=== PATIENT | female | born 1945 | race Hispanic/Latino ===

== ENCOUNTER 2017-11-18 10:11 | Observation (INO) | payer MEDICARE ==
--- NOTE | 2017-11-18 11:18 | ED PDOC ---
Arrival/HPI - General Chief Complaint: Chest Pain Time Seen by Provider: 11/18/17 11:04 Historian: Patient - History of Present Illness Narrative History of Present Illness (Text): 11/18/17 11:13 Patient is a 72 year old female, with past medical history of cardiac stentsx2 ( 2005), presents to the Emergency department for evaluation of a sudden onset of chest pain radiating to her back and right jaw prior to arrival. Patient states she was home when the symptoms suddenly began 10 minutes prior to arrival. EMS was called immediately. Upon EMS arrival, patient was provided aspirin with improvement to the presented symptoms. Patient states the symptoms resolved presenting to the Emergency department for medical evaluation. Patient informs similar symptoms in the past, which improved after drinking warm water and spontaneously resolved. Patient denies any associated shortness of breath, pain with deep inspiration, fever, chills, nausea, vomiting, diarrhea, abdominal pain or any other complaints. PMD: Dr. Crowley Acoustical Carpenter: Dr. Lira Time/Duration: Prior to Arrival Symptom Onset: Gradual Symptom Course: Resolved Quality: Aching Activities at Onset: Light Context: Home Past Medical History - Provider Review Nursing Documentation Reviewed: Yes - Infectious Disease Hx of Infectious Diseases: None - Reproductive Menopause: Yes - Cardiac Hx Hypertension: Yes Hx Pacemaker: No - Neurological Hx Paralysis: No - Hematological/Oncological Hx Blood Transfusions: No (IRON INFUSIONS IN PAST) Hx Blood Transfusion Reaction: No - Musculoskeletal/Rheumatological Hx Musculoskeletal Disorders: Yes - Psychiatric Hx Emotional Abuse: No Hx Physical Abuse: No Hx Substance Use: No - Anesthesia Hx Anesthesia Reactions: No Hx Malignant Hyperthermia: No - Suicidal Assessment Feels Threatened In Home Enviroment: No Family/Social History - Physician Review Nursing Documentation Reviewed: Yes Family/Social History: Unknown Family HX Smoking Status: Never Smoked Hx Alcohol Use: No Hx Substance Use: No Allergies/Home Meds Allergies/Adverse Reactions: Allergies No Known Allergies Allergy (Verified 11/18/17 20:02) Home Medications: Home Meds Medication Instructions Recorded Confirmed Aspirin [Ecotrin] 81 mg PO DAILY 02/21/16 11/18/17 Ergocalciferol (Vitamin D2) 50,000 iu PO SUN 02/21/16 11/18/17 [Vitamin D2] Metoprolol Tartrate [Lopressor] 50 mg PO BID 02/21/16 11/18/17 Omeprazole 40 mg PO HS 02/21/16 11/18/17 Sitagliptin Phos/Metformin HCl 1 tab PO DAILY 02/21/16 11/18/17 [Janumet 50-500 mg Tablet] Allopurinol [Zyloprim] 100 mg PO MWF 11/11/16 11/18/17 Atorvastatin [Lipitor] 80 mg PO QOTHERDAY 11/11/16 11/18/17 Colesevelam HCl [Welchol] 1,875 mg PO BID 11/11/16 11/18/17 Pregabalin [Lyrica] 50 mg PO BID 11/11/16 11/18/17 Valsartan 80 mg PO HS 11/11/16 11/18/17 clonazePAM [Klonopin] 0.5 mg PO Q12 PRN 11/11/16 11/18/17 Review of Systems - Physician Review All systems were reviewed & negative as marked: Yes - Review of Systems Constitutional: absent: Fevers Eyes: absent: Vision Changes ENT: absent: Hearing Changes Respiratory: absent: SOB, Cough Cardiovascular: Chest Pain (resolved) Gastrointestinal: absent: Abdominal Pain, Diarrhea, Nausea, Vomiting Genitourinary Female: absent: Dysuria Musculoskeletal: Back Pain (resolved), Neck Pain, Other (Right jaw pain currently resolved) Skin: absent: Rash Neurological: absent: Headache, Dizziness Endocrine: absent: Polyuria Psychiatric: absent: Anxiety, Depression Physical Exam - Physical Exam Narrative Physical Exam (Text): 11/18/17 11:15 Head: Atraumatic. Normocephalic. Eyes: PERRL. EOMI. Conjunctivae are not pale. ENT: Mucous membranes are moist and intact. Oropharynx is clear and symmetric. Neck: Supple. Full ROM. No JVD. No lymphadenopathy. No meningeal signs. Cardiovascular: Regular rate. Regular rhythm. Systsolic murmur noted. Pulmonary/Chest: No evidence of respiratory distress. Clear to auscultation bilaterally. No wheezing, rales or rhonchi. Abdominal: Soft and non-distended. There is no tenderness. No rebound, guarding, or rigidity. No organomegaly. Good bowel sounds. Back: No CVA tenderness. No palpable tenderness. No rash. Extremities: Cast noted on left leg, placed Wednesday as per patient. No edema. No cyanosis. No clubbing. No calf tenderness. Skin: Skin is warm and dry. No petechiae. No purpura. Neurological: Alert, awake, and oriented. Motor and sensory exam intact. No facial droop. Psychiatric: Good eye contact. Normal interaction, affect, and behavior. Vital Signs Reviewed: Yes Vital Signs Temp Pulse Resp BP Pulse Ox 11/18/17 14:07 98.8 F 73 18 100/55 L 96 11/18/17 10:30 98.4 F 77 16 138/71 97 Temperature: Afebrile Blood Pressure: Normal Pulse: Regular Respiratory Rate: Normal Appearance: Positive for: Well-Appearing, Non-Toxic, Comfortable Pain Distress: None Mental Status: Positive for: Alert and Oriented X 3 Medical Decision Making ED Course and Treatment: 11/18/17 11:15 Impression: 72 year old female presents to the Emergency department for sudden onset of chest pain. Differential Diagnosis included but are not limited to: [place] vs. unstable angina vs. Pulmonary Embolism Plan: -- EKG -- Labs -- Chest X-ray -- Reassess and disposition Prior Visits: Notes and results from previous visits were reviewed. Progress Notes: 11/18/17 11:15 Patient states she is currently pain free after receiving Aspirin by EMS prior to arrival. Patient presents to the Emergency department for medical evaluation. Plan is to obtain cardiac evaluation with D-dimer and consult wire harness design engineer Dr. Lira. 11/18/17 11:46 Chest X-ray reviewed by radiologist, shows no active disease. 11/18/17 13:08 Patient remains pain free. Despite d-dimer being mildly elevated, patient denies any chest pain or shortness of breath still. Will order CT angio of the chest for further evaluation. Acoustical Carpenter, Dr. Lira, has been updated and Lovenox has been ordered for unstable angina. Patient will be admitted to Dr. Crowley's service for further observation. 11/18/17 14:15 CT angio of chest reviewed by radiologist, shows: No CT evidence for acute pulmonary embolism, aortic aneurysm or aortic dissection. Mild cardiomegaly. No focal consolidation, pleural effusion or pneumothorax. 5 mm peripheral nodule in the inferior lingula. In a high-risk patient follow- up CT scan 1 year interval may be performed if clinically indicated to assess the stability of this nodule. Patient remains pain free. Updated on CT results, including discussion of nodule noted and need for follow-up. - Lab Interpretations Lab Results: 11/18/17 11:50 11/18/17 11:50 Lab Results 11/18/17 11:50: Sodium 141, Potassium 4.0, Chloride 101, Carbon Dioxide 28, Anion Gap 17, BUN 27 H, Creatinine 0.8, Est GFR ( Amer) > 60, Est GFR ( Non-Af Amer) > 60, Random Glucose 147 H, Calcium 9.0, Total Bilirubin 0.3, AST 29, ALT 32, Alkaline Phosphatase 116, Lactate Dehydrogenase 409, Total Creatine Kinase 489 H, CK-MB (CK-2) 0.6, CK-MB (CK-2) % Cancelled, Troponin I < 0.01, Total Protein 7.0, Albumin 4.1, Globulin 2.9, Albumin/Globulin Ratio 1.4 11/18/17 11:50: PT 11.4, INR 0.99, APTT 27.1, D-Dimer, Quantitative 281 H 11/18/17 11:50: WBC 13.3 H, RBC 4.15, Hgb 11.6 L, Hct 34.7 L, MCV 83.6, MCH 28.0 , MCHC 33.4, RDW 14.8 H, Plt Count 323, MPV 9.4, Gran % 74.2 H, Lymph % (Auto) 19.4 L, [place] % (Auto) 5.3, Eos % (Auto) 0.9 L, Baso % (Auto) 0.2, Gran # 9.84 H , Lymph # (Auto) 2.6, [place] # (Auto) 0.7 H, Eos # (Auto) 0.1, Baso # (Auto) 0.02 - RAD Interpretation Radiology Orders: 11/18/17 11:13 CHEST PORTABLE [RAD] Stat 11/18/17 12:34 ANGIO CHEST PE PROTOCOL [CT] Stat Disability Rater: Radiologist - Medication Orders Current Medication Orders: Aspirin (Ecotrin) 81 mg PO DAILY [facility] Atorvastatin Calcium (Lipitor) 40 mg PO DIN [facility] Last Admin: 11/18/17 17:58 Dose: 40 mg Clopidogrel Bisulfate (Plavix) 75 mg PO DAILY [facility] Last Admin: 11/18/17 22:13 Dose: 75 mg Dextrose (Dextrose 50% Inj) 0 ml IV STAT PRN; Protocol PRN Reason: Hypoglycemia Protocol Enoxaparin Sodium (Lovenox) 40 mg SC DAILY [facility] PRN Reason: Protocol Ergocalciferol (Drisdol 50,000 Intl Units Cap) 1 cap PO SUN [facility] Dextrose (Dextrose 5% In Water 1000 Ml) 1,000 mls @ 0 mls/hr IV .Q0M PRN; Protocol; Per Protocol PRN Reason: Hypoglycemia Protocol Insulin Human Regular (Humulin R Med) 0 units SC ACHS ROJELIO PRN Reason: Protocol Last Admin: 11/18/17 23:04 Dose: Not Given Non-Admin Reason: Blood Sugar Parameter MAR Blood Glucose Document 11/18/17 23:04 LGA (Rec: 11/18/17 23:[address] [id number]) Blood Glucose Finger Stick Blood Glucose (70-120) 106 Losartan Potassium (Cozaar) 25 mg PO HS [facility] Last Admin: 11/18/17 22:14 Dose: 25 mg MAR Pulse and Blood Pressure Document 11/18/17 22:14 LGA (Rec: 11/18/17 22:14 LGA [id number]) Pulse Pulse Rate (60-90 beats/min) 69 Blood Pressure Blood Pressure (100/60-150/90 mm Hg) 139/78 Metoprolol Tartrate (Lopressor) 50 mg PO BID [facility] Last Admin: 11/18/17 17:57 Dose: 50 mg MAR Pulse and Blood Pressure Document 11/18/17 17:57 KMS (Rec: 11/18/17 17:58 KMS [id number]) Pulse Pulse Rate (60-90 beats/min) 74 Blood Pressure Blood Pressure (100/60-150/90 mm Hg) 144/68 Pantoprazole Sodium (Protonix Ec Tab) 40 mg PO HS [facility] Last Admin: 11/18/17 22:13 Dose: 40 mg Pregabalin (Lyrica) 50 mg PO BID [facility] Last Admin: 11/18/17 17:58 Dose: 50 mg Zolpidem Tartrate (Ambien) 5 mg PO HS PRN; Protocol PRN Reason: Insomnia Discontinued Medications Enoxaparin Sodium (Lovenox) 70 mg SC STAT STA PRN Reason: Protocol Stop: 11/18/17 12:49 Last Admin: 11/18/17 13:12 Dose: 70 mg Subcutaneous Administrations Document 11/18/17 13:12 HI (Rec: 11/18/17 13:[address] [id number]) Injection Site MAR Injection Site Left Abdomen Charges for Administration # of Subcutaneous Administrations 1 Nitroglycerin (Nitrostat Sl Tab) 0.3 mg SL Q5M PRN PRN Reason: Pain, severe (8-10) Stop: 11/18/17 14:26 Non-Formulary Medication (Omeprazole [Omeprazole]) 40 mg PO HS ROJELIO Pneumococcal Polyvalent Vaccine (Pneumovax 23 Vaccine) 0.5 ml IM .ONCE ONE Stop: 11/18/17 22:35 - Scribe Statement The provider has reviewed the documentation as recorded by the Scribe Linda Johns. All medical record entries made by the Scribe were at my direction and personally dictated by me. I have reviewed the chart and agree that the record accurately reflects my personal performance of the history, physical exam, medical decision making, and the department course for this patient. I have also personally directed, reviewed, and agree with the discharge instructions and disposition. Disposition/Present on Arrival - Present on Arrival Any Indicators Present on Arrival: No History of DVT/PE: No History of Uncontrolled Diabetes: No Urinary Catheter: No History of Decub. Ulcer: No History Surgical Site Infection Following: None - Disposition Have Diagnosis and Disposition been Completed?: Yes Diagnosis: Chest pain, Unstable angina Disposition: HOSPITALIZED Disposition Time: 13:00 Patient Plan: Admission, Telemetry Patient Problems: Current Active Problems Problem Status Onset Chest pain Acute Unstable angina Acute Condition: SERIOUS
--- NOTE | 2017-11-18 11:39 | RAD ---
Date of service: 11/18/2017 HISTORY: chest pain COMPARISON: 07/05/2012 FINDINGS: LUNGS: No active pulmonary disease. PLEURA: No significant pleural effusion identified, no pneumothorax apparent. CARDIOVASCULAR: Normal. OSSEOUS STRUCTURES: No significant abnormalities. VISUALIZED UPPER ABDOMEN: Normal. OTHER FINDINGS: None. IMPRESSION: No active disease.
[2017-11-18 11:59] LABS: BASO # 0.02 K/mm3 (0.0-2.0); BASO % 0.2 % (0.0-3.0); EOS # 0.1 (0.0-0.7); EOS % 0.9 % (1.5-5.0); GRAN # 9.84 (1.4-6.5); GRAN % 74.2 % (50.0-68.0); HEMOGLOBIN 11.6 g/dL (12.0-16.0); LYMPH # 2.6 (1.2-3.4); LYMPH % 19.4 % (22.0-35.0); MEAN CELL VOLUME 83.6 fl (80.0-105.0); MEAN CORPUSCULAR HGB CONC 33.4 g/dl (31.0-37.0); MEAN PLATELET VOLUME 9.4 fl (7.0-11.0); MONO # 0.7 (0.1-0.6); MONO % 5.3 % (1.0-6.0); RBC 4.15 10^6/uL (3.5-6.1); RED CELL DISTRIBUTION WIDTH 14.8 % (11.5-14.5); WHITE BLOOD COUNT 13.3 10^3/ul (4.5-11.0)
[2017-11-18 12:10] LABS: ALB/GLOB RATIO 1.4 (1.1-1.8); ALBUMIN 4.1 g/dL (3.0-4.8); ALT/SGPT 32 U/L (7-56); AST/SGOT 29 U/L (14-36); BLOOD UREA NITROGEN 27 mg/dL (7-21); GFR AFRICAN-AMERICAN > 60; GFR NON-AFRICAN AMERICAN > 60
[2017-11-18 12:27] LABS: TROPONIN I < 0.01 ng/mL
[2017-11-18 12:32] LABS: INR 0.99 (0.93-1.08); PARTIAL THROMBOPLASTIN TIME 27.1 Seconds (25.1-36.5); PROTHROMBIN TIME 11.4 SECONDS (9.4-12.5)
[2017-11-18] MEDS ORDERED: Enoxaparin 80 mg Syringe SC STA (12:48)
[2017-11-18] MEDS ORDERED: Iohexol 350 MG/100 ML VIAL ONE (12:49)
[2017-11-18 13:12] LABS: CK-MB 0.6 ng/mL (0.0-3.6)
[2017-11-18] MEDS ORDERED: Dextrose 50% SYRINGE Inj (50 ml) IV PRN (13:54)
--- NOTE | 2017-11-18 14:23 | CP.PCM.HP ---
<Lacie Vu - Last Filed: 11/18/17 15:12> History of Present Illness - History of Present Illness History of Present Illness: Lacie Vu, PGY2, H&P for Dr Crowley: CC: chest pain 72 year old female with PMH cardiac stents x2 (2005), DM, HTN, HLD, left achilles tear in cast (since past Wednesday), presents for epigastric pain. Patient states that it started at 9 AM this morning while patient was exerting herself in wheelchair. Pt rates it as 6-7/10, radiates to left jaw, upper back region. Denies associated nausea, vomiting, palpitations, syncope, headache, abdominal pain. Patient states that she often feels such pain once a month. Within 15 minutes of such pain, patient called 911 and took 325 mg ASA. After 1/ 2hr-45 minutes, patient states that she felt relief of her pain. States that her last cardiac cath was in 2005. Prior to this episode, patient states that she was in her usual state of health. Denies headache, cough, fever, chills, diarrhea, constipation, heartburn symptoms, urinary symptoms, leg swelling. Denies recent travel or sick contacts. In ED, patient afebrile, hemodynamically stable. Initial EKG and trop neg. Given lovenox 70 mg sq in ED. Currently, patient denies chest pain, sob, n/v, diaphoresis. 12 point ROS obtained and neg, except as per HPI. PMH: cardiac stents x 2 (2005-[facility] with Dr Lira), DM, HTN, HLD, left achilles tear PSH: cholecystectomy (50 years ago) All: NKA FH: Aunt, brain cancer Father, DM Mother, HTNM SH: Lives by self. Has aunt who lives upstairs; daughter and granddaughter live 1 hour away. Quit smoking 12 years ago, prior smoked 3 ppd x 30 years. Drinks 1- 2 glasses of red wine for past 5 years. denies recreational drug use. PMD: [employer] Hair Clipper: Dr Lira INS: [employer] Pharmacy: [facility] Present on Admission - Present on Admission Any Indicators Present on Admission: No History of DVT/PE: No History of Uncontrolled Diabetes: No Urinary Catheter: No Decubitus Ulcer Present: No Review of Systems - Review of Systems All systems: reviewed and no additional remarkable complaints except Review of Systems: as per HPI Past Patient History - Infectious Disease Hx of Infectious Diseases: None - Past Social History Smoking Status: Never Smoked - CARDIAC Hx Hypertension: Yes Hx Pacemaker: No - NEUROLOGICAL Hx Paralysis: No - HEMATOLOGICAL/ONCOLOGICAL Hx Blood Transfusions: No (IRON INFUSIONS IN PAST) Hx Blood Transfusion Reaction: No - MUSCULOSKELETAL/RHEUMATOLOGICAL Hx Musculoskeletal Disorders: Yes - PSYCHIATRIC Hx Emotional Abuse: No Hx Physical Abuse: No Hx Substance Use: No - SURGICAL HISTORY Hx Surgeries: No - ANESTHESIA Hx Anesthesia Reactions: No Hx Malignant Hyperthermia: No Meds Allergies/Adverse Reactions: Allergies Allergy/AdvReac Type Severity Reaction Status Date / Time No Known Allergies Allergy Verified 11/18/17 20:02 Physical Exam - Constitutional Appears: Non-toxic, No Acute Distress - Head Exam Head Exam: ATRAUMATIC, NORMOCEPHALIC - Eye Exam Eye Exam: EOMI, PERRL. absent: Conjunctival injection, Nystagmus, Scleral icterus Pupil Exam: NORMAL ACCOMODATION, PERRL. absent: Fixed, Irregular, Miosis, Unequal - ENT Exam ENT Exam: Mucous Membranes Moist - Neck Exam Neck exam: Positive for: Full Rom - Respiratory Exam Respiratory Exam: Clear to Auscultation Bilateral, NORMAL BREATHING PATTERN. absent: Accessory Muscle Use, Rales, Rhonchi, Wheezes, Stridor - Cardiovascular Exam Cardiovascular Exam: RRR, +S1, +S2. absent: Systolic Murmur - GI/Abdominal Exam GI & Abdominal Exam: Normal Bowel Sounds, Soft. absent: Distended, Firm, Guarding, Organomegaly, Pulsatile Mass, Rebound, Rigid, Tenderness - Extremities Exam Extremities exam: Positive for: normal inspection. Negative for: calf tenderness, pedal edema - Back Exam Back exam: NORMAL INSPECTION. absent: CVA tenderness (L), CVA tenderness (R), muscle spasm, paraspinal tenderness, rash noted, tenderness, vertebral tenderness - Neurological Exam Neurological exam: Alert, Oriented x3 - Psychiatric Exam Psychiatric exam: Normal Affect, Normal Mood - Skin Skin Exam: Dry, Normal Color, Warm Results - Vital Signs Recent Vital Signs: Last Vital Signs Temp 98.4 F 11/18/17 10:30 Pulse 77 11/18/17 10:30 Resp 16 11/18/17 10:30 BP 138/71 11/18/17 10:30 Pulse Ox 97 11/18/17 10:30 - Labs Result Diagrams: 11/18/17 11:50 11/18/17 11:50 Assessment & Plan - Assessment and Plan (Free Text) Assessment: 72 year old female with PMH cardiac stents x2 (2005), DM, HTN, HLD, left achilles tear in cast (since past Wednesday), presents for chest/epigastric pain: Chest/epigastric pain: r/o ACS, vs PE vs GERD vs PUD - Initial EKG shows HR [address]/T wave abnormalities. QTc prolonged 485 ms - Initial trop neg. F/u serial trops and EKG - ASA 325 given at home - ASA 81 mg, Metoprolol - nitro SL prn for chest pain - F/u echo - F/u tsh, HgbA1C, lipid panel, lipase - Cardiology on board. F/u recs - Give Lovenox 70 mg sq in ED - F/u CTA Left achilles tear in cast: - podiatry consult. F/u recs. - pulses/sensation intact Hx of HTN: - home metoprolol - holding parameters in place - monitor Hx of DM: - hold home Janumet - lyrica - ISS med Hx of HLD: - lipid panel - home lipitor PPX: omeprazole, lovenox Case discussed with Dr Crowley. Lacie Vu, pGY2 <Marty Crowley U - Last Filed: 11/20/17 20:49> Results - Vital Signs Recent Vital Signs: Last Vital Signs Temp 98.1 F 11/19/17 06:00 Pulse 71 11/19/17 10:00 Resp 18 11/19/17 06:00 BP 122/60 11/19/17 06:00 Pulse Ox 96 11/19/17 06:00 - Labs Result Diagrams: 11/19/17 05:40 11/19/17 05:40 Labs: Laboratory Results - last 24 hr 11/19/17 05:40 Fructosamine 208 Attending/Attestation - Attestation I have personally seen and examined this patient.: Yes I have fully participated in the care of the patient.: Yes I have reviewed all pertinent clinical information: Yes Notes (Text): Please see/read my dictated notes.
--- NOTE | 2017-11-18 14:24 | CT ---
Date of service: 11/18/2017 PROCEDURE: CT Chest with contrast (Pulmonary Angiogram) HISTORY: r/o PE COMPARISON: None available. TECHNIQUE: Axial computed tomography images were obtained of the chest in the pulmonary arterial phase of enhancement. Coronal and sagittal reformatted images were created and reviewed. Intravenous contrast dose: 100 mL Omnipaque 350 Radiation dose: Total exam DLP = 432.47 mGy-cm. This CT exam was performed using one or more of the following dose reduction techniques: Automated exposure control, adjustment of the mA and/or kV according to patient size, and/or use of iterative reconstruction technique. FINDINGS: PULMONARY ARTERIES: There are no filling defects in the pulmonary arteries to suggest acute pulmonary embolism. AORTA: No aortic dissection. No thoracic aortic aneurysm. LUNGS: The lungs are well inflated and clear. There is a 5 mm nodule in the peripheral inferior lingula (series 5, image 64). There is scattered centrilobular emphysema in the right upper lobe. No mass or pulmonary consolidation. PLEURAL SPACES: No effusion or pneumothorax. HEART: There is mild cardiomegaly. No pericardial effusion. LYMPH NODES: No pathologic mediastinal or hilar lymphadenopathy. BONES, CHEST WALL: Unremarkable. No fracture or destructive lesion there is diffuse bone demineralization and multilevel degenerative disc disease OTHER FINDINGS: There is a small sliding hiatal hernia. There is diffuse fatty infiltration in the liver. IMPRESSION: No CT evidence for acute pulmonary embolism, aortic aneurysm or aortic dissection. Mild cardiomegaly. No focal consolidation, pleural effusion or pneumothorax. 5 mm peripheral nodule in the inferior lingula. In a high-risk patient follow-up CT scan 1 year interval may be performed if clinically indicated to assess the stability of this nodule.
[2017-11-18] MEDS: Insulin Reg-MEDIUM-Coverage SC SCH ×2 (16:30→23:04)
[2017-11-18] MEDS ORDERED: COLESEVELAM HCL 1875 MG PO SCH ×2 (18:00)
--- NOTE | 2017-11-18 19:29 | CARD ---
APPROVED REPORT Date of service: 11/18/2017 EKG Measurement Heart [id number] <Conclusion> Sinus rhythm with 1st degree AV block Nonspecific T wave abnormality Abnormal ECG
--- NOTE | 2017-11-18 19:37 | CARD ---
APPROVED REPORT Date of service: 11/18/2017 EKG Measurement Heart [id number] <Conclusion> Normal sinus rhythm Prolonged QT Abnormal ECG
[2017-11-18 19:53] LABS: LIPASE 110 U/L (23-300); TROPONIN I < 0.01 ng/mL
[2017-11-18 19:54] LABS: CK-MB 0.7 ng/mL (0.0-3.6)
[2017-11-18 20:07] LABS: FREE T4 1.21 ng/dL (0.78-2.19)
[2017-11-18] MEDS ORDERED: Non Formulary Medication (Omeprazole [Omeprazole] 40 MG) PO SCH (22:00)
[2017-11-18] MEDS ORDERED: Pantoprazole 40 mg EC Tab PO SCH (22:00)
[2017-11-18 22:34] VITALS: BMI 29.2
[2017-11-18] MEDS ORDERED: Pneumococcal 23-Valent Vaccine IM ONE (22:34)
[2017-11-19 01:21] LABS: TROPONIN I < 0.01 ng/mL
[2017-11-19 01:39] LABS: CK-MB 0.6 ng/mL (0.0-3.6)
[2017-11-19 06:28] LABS: BASO # 0.02 K/mm3 (0.0-2.0); BASO % 0.2 % (0.0-3.0); EOS # 0.1 (0.0-0.7); EOS % 1.3 % (1.5-5.0); GRAN # 5.6 (1.4-6.5); GRAN % 64.7 % (50.0-68.0); HEMOGLOBIN 11.3 g/dL (12.0-16.0); LYMPH # 2.4 (1.2-3.4); LYMPH % 27.2 % (22.0-35.0); MEAN CELL VOLUME 83.7 fl (80.0-105.0); MEAN CORPUSCULAR HEMOGLOBIN 27.2 pg (25.0-35.0); MEAN CORPUSCULAR HGB CONC 32.5 g/dl (31.0-37.0); MEAN PLATELET VOLUME 10.7 fl (7.0-11.0); MONO # 0.6 (0.1-0.6); MONO % 6.6 % (1.0-6.0); RBC 4.16 10^6/uL (3.5-6.1); RED CELL DISTRIBUTION WIDTH 14.6 % (11.5-14.5); WHITE BLOOD COUNT 8.7 10^3/ul (4.5-11.0)
[2017-11-19 06:36] VITALS: BP 122/60; PULSE 71; RESP 18; TEMP 98.1; O2SAT 96
[2017-11-19 06:47] LABS: ALB/GLOB RATIO 1.4 (1.1-1.8); ALT/SGPT 37 U/L (7-56); AST/SGOT 28 U/L (14-36); BLOOD UREA NITROGEN 17 mg/dL (7-21); CALCIUM 8.9 mg/dL (8.4-10.5); GFR AFRICAN-AMERICAN > 60; GFR NON-AFRICAN AMERICAN > 60; HDL CHOLESTEROL 29 mg/dL (29-60)
[2017-11-19 06:48] LABS: LDL CHOLESTEROL 83 mg/dL (0-129)
--- NOTE | 2017-11-19 07:43 | HP ---
Please refer to the detailed history and physical examination done by the medical technician earlier today. The patient examined in room 271, bed 2. The patient's vital signs, diagnostic data reviewed. Imaging studies reviewed. The patient examined. IMPRESSION AND PLAN: 1. Precordial retrosternal chest pain with associated diaphoresis. 2. Possible unstable angina with radiation of chest pain to the jaw and upper back. 3. Status post left Achilles tendon tear, status post casting done. 4. Hypertension. 5. Leukocytosis with granulocytosis. 6. Type 2 diabetes mellitus. 7. Diabetic neuropathy. 8. Elevated D-dimer. 9. Hyperglycemia. 10. Left inferior lingular area 5-mm pulmonary nodule. 11. Right upper lobe centrilobular emphysema. 12. Hiatal hernia. 13. Hepatic steatosis and fatty infiltration of the liver. 14. Mild cardiomegaly. 15. History of iron-deficiency anemia, history of diverticulosis and history of questionable diverticulitis. 16. History of coronary artery disease, ST elevation myocardial infarction, coronary angioplasty and stent placement, history of hypertension, history of cholecystectomy. 17. Possible unstable angina with symptoms of diaphoresis and chest pain radiating to the jaw. 18. Nonspecific ST changes. 19. History of anxiety disorder. 20. History of type 2 diabetes mellitus. 21. Hypovitaminosis D. 22. Hypercholesterolemia and hypertriglyceridemia. 23. Hyperuricemia. 24. Diabetic neuropathy. 25. History of Alexander's esophagus. 26. Left Achilles tendon rupture. 27. Osteopenia. 28. Hyperplastic colonic polyp, sigmoid colon polyp, tubular adenoma. 29. Obesity with elevated body mass index. 30. Sigmoid and descending colon diverticulosis and internal hemorrhoids. 31. History of insomnia. 32. History of nicotine dependence. PLAN: At this time, the patient is to be admitted to [facility] Telemetry. Serial cardiac enzymes, serial labs, lipid panel, hemoglobin A1c, repeat CBC ordered. Cardiology, Podiatry consultation ordered. CURRENT MEDICATIONS: Ambien 5 mg at bedtime p.r.n., Cozaar 25 mg daily. Hypoglycemia protocol ordered. Drisdol 50,000 units weekly, aspirin 81 mg daily, Lipitor 40 mg daily, Lopressor 50 mg twice a day, Lovenox 40 mg subcu daily, Lyrica 50 mg twice a day, Protonix 40 mg daily. In addition, the patient will also be started on Plavix 75 mg p.o. daily. Plavix 75 mg p.o. daily will be ordered. The patient is on oxygen. Repeat EKG ordered. Echo with Doppler ordered. Heart-healthy diet ordered. The patient has been started on medium-dose Humulin sliding scale coverage before lunch and at bedtime, Lipitor 40 mg daily ordered. Lipid panel, magnesium, phosphorus ordered. Repeat CBC ordered. Serial cardiac enzymes ordered. At present, the patient was seen and examined in room 271, bed 2. The patient was explained about the details of her medical condition, need for further diagnostic therapeutic intervention, need for further Cardiology, Podiatry evaluation. Discussed and explained to the patient at length and all questions concerned answered which she acknowledged and understood. The patient was advised that further management will be dependent upon the patient's clinical condition, hemodynamic status and as per the patient's response to therapeutic intervention and as per further cardiac recommendations. Dictated and electronically signed, not read. Marty Crowley MD
[2017-11-19] MEDS: Insulin Reg-MEDIUM-Coverage SC SCH ×2 (07:57→12:07)
[2017-11-19] MEDS ORDERED: Enoxaparin 40 mg Syringe SC SCH (10:00)
--- NOTE | 2017-11-19 10:00 | CARD ---
APPROVED REPORT Date of service: 11/19/2017 EKG Measurement Heart [id number] <Conclusion> Sinus rhythm with 1st degree AV block T wave abnormality, consider anterior ischemia Abnormal ECG
--- NOTE | 2017-11-19 10:12 | CP.PCM.DIS ---
<Lacie Vu - Last Filed: 11/19/17 10:09> Provider - Provider Date of Admission: 11/18/17 13:00 Attending physician: Marty Crowley MD Primary care physician: Marty Crowley MD Consults: Cardio Lira Time Spent in preparation of Discharge (in minutes): 60 Diagnosis - Discharge Diagnosis (1) Chest pain Status: Acute (2) Unstable angina Status: Acute Hospital Course - Lab Results Lab Results: Most Recent Lab Values WBC 8.7 10^3/ul (4.5-11.0) D 11/19/17 05:40 RBC 4.16 10^6/uL (3.5-6.1) 11/19/17 05:40 Hgb 11.3 g/dL (12.0-16.0) L 11/19/17 05:40 Hct 34.8 % (36.0-48.0) L 11/19/17 05:40 MCV 83.7 fl (80.0-105.0) 11/19/17 05:40 MCH 27.2 pg (25.0-35.0) 11/19/17 05:40 MCHC 32.5 g/dl (31.0-37.0) 11/19/17 05:40 RDW 14.6 % (11.5-14.5) H 11/19/17 05:40 Plt Count 252 10^3/uL (120.0-450.0) 11/19/17 05:40 MPV 10.7 fl (7.0-11.0) 11/19/17 05:40 Gran % 64.7 % (50.0-68.0) 11/19/17 05:40 Lymph % (Auto) 27.2 % (22.0-35.0) 11/19/17 05:40 [place] % (Auto) 6.6 % (1.0-6.0) H 11/19/17 05:40 Eos % (Auto) 1.3 % (1.5-5.0) L 11/19/17 05:40 Baso % (Auto) 0.2 % (0.0-3.0) 11/19/17 05:40 Gran # 5.60 (1.4-6.5) 11/19/17 05:40 Lymph # (Auto) 2.4 (1.2-3.4) 11/19/17 05:40 [place] # (Auto) 0.6 (0.1-0.6) 11/19/17 05:40 Eos # (Auto) 0.1 (0.0-0.7) 11/19/17 05:40 Baso # (Auto) 0.02 K/mm3 (0.0-2.0) 11/19/17 05:40 PT 11.4 SECONDS (9.4-12.5) 11/18/17 11:50 INR 0.99 (0.93-1.08) 11/18/17 11:50 APTT 27.1 Seconds (25.1-36.5) 11/18/17 11:50 D-Dimer, Quantitative 281 ng/mL (0-243) H 11/18/17 11:50 Sodium 139 mmol/L (132-148) 11/19/17 05:40 Potassium 4.1 mmol/L (3.6-5.0) 11/19/17 05:40 Chloride 105 mmol/L (98-107) 11/19/17 05:40 Carbon Dioxide 25 mmol/L (21-33) 11/19/17 05:40 Anion Gap 13 (10-20) 11/19/17 05:40 BUN 17 mg/dL (7-21) 11/19/17 05:40 Creatinine 0.7 mg/dl (0.7-1.2) 11/19/17 05:40 Est GFR ( Amer) > 60 11/19/17 05:40 Est GFR (Non-Af Amer) > 60 11/19/17 05:40 POC Glucose (mg/dL) 106 mg/dL (65-110) 11/18/17 21:08 Random Glucose 120 mg/dL (70-110) H 11/19/17 05:40 Calcium 8.9 mg/dL (8.4-10.5) 11/19/17 05:40 Phosphorus 3.6 mg/dL (2.5-4.5) 11/19/17 05:40 Magnesium 2.1 mg/dL (1.7-2.2) 11/19/17 05:40 Total Bilirubin 0.6 mg/dL (0.2-1.3) 11/19/17 05:40 AST 28 U/L (14-36) 11/19/17 05:40 ALT 37 U/L (7-56) 11/19/17 05:40 Alkaline Phosphatase 110 U/L (38-126) 11/19/17 05:40 Lactate Dehydrogenase 445 U/L (333-699) 11/19/17 00:40 Total Creatine Kinase 318 U/L (35-230) H 11/19/17 00:40 CK-MB (CK-2) 0.6 ng/mL (0.0-3.6) 11/19/17 00:40 CK-MB (CK-2) % Cancelled 11/18/17 11:50 Troponin I < 0.01 ng/mL 11/19/17 00:40 Total Protein 6.9 g/dL (5.8-8.3) 11/19/17 05:40 Albumin 4.0 g/dL (3.0-4.8) 11/19/17 05:40 Globulin 2.9 gm/dL 11/19/17 05:40 Albumin/Globulin Ratio 1.4 (1.1-1.8) 11/19/17 05:40 Triglycerides 406 mg/dL (35-160) H 11/19/17 05:40 Cholesterol 177 mg/dL (130-200) 11/19/17 05:40 LDL Cholesterol Direct 83 mg/dL (0-129) 11/19/17 05:40 HDL Cholesterol 29 mg/dL (29-60) 11/19/17 05:40 Lipase 110 U/L (23-300) 11/18/17 19:11 Free T4 1.21 ng/dL (0.78-2.19) 11/18/17 19:11 TSH 3rd Generation 1.50 mIU/mL (0.46-4.68) 11/18/17 19:11 - Hospital Course Hospital Course: 72 year old female with PMH cardiac stents x2 (2005), DM, HTN, HLD, left achilles tear in cast (since past Wednesday), presents for epigastric pain. Patient states that it started at 9 AM this morning while patient was exerting herself in wheelchair. Pt rates it as 6-7/10, radiates to left jaw, upper back region. Denies associated nausea, vomiting, palpitations, syncope, headache, abdominal pain. Patient states that she often feels such pain once a month. Patient afebrile, hemodynamically stable. EKG and trops neg x3. Given lovenox 70 mg sq in ED. Cardiology evaluated patient, scheduled for cardiac cath on . Medications reconciled. Patient to follow up with Dr Crowley and Dr Lira in 1 week. Discharge Exam - Head Exam Head Exam: ATRAUMATIC, NORMOCEPHALIC - Eye Exam Eye Exam: EOMI, PERRL. absent: Conjunctival injection, Nystagmus, Scleral icterus Pupil Exam: NORMAL ACCOMODATION, PERRL. absent: Irregular, Miosis, Mydriatic, Unequal - ENT Exam ENT Exam: Mucous Membranes Moist - Neck Exam Neck exam: Full Rom - Respiratory Exam Respiratory Exam: Clear to PA & Lateral, NORMAL BREATHING PATTERN. absent: Accessory Muscle Use, Chest Wall Tenderness, Rales, Rhonchi, Wheezes - Cardiovascular Exam Cardiovascular Exam: RRR, +S1, +S2. absent: Systolic Murmur - GI/Abdominal Exam GI & Abdominal Exam: Normal Bowel Sounds, Soft. absent: Distended, Firm, Guarding, Mass, Rebound, Rigid - Extremities Exam Extremities exam: normal inspection - Back Exam Back exam: NORMAL INSPECTION - Neurological Exam Neurological exam: Alert, Oriented x3 - Psychiatric Exam Psychiatric exam: Normal Affect, Normal Mood - Skin Skin Exam: Dry, Normal Color, Warm Discharge Plan - Discharge Medications Prescriptions: Clopidogrel [Plavix] 75 mg PO DAILY #90 tab - Follow Up Plan Condition: SERIOUS Disposition: HOME/ ROUTINE Instructions: Chest Pain (DC) Additional Instructions: DISCHARGE HOME FOLLOW UP; ON 11/22/2017 FOR CARDIAC CATH WITHIN 1 WEEK DISCHARGE MEDS PER UPDATED AMBULATORY ORDERS AND NEW SCRIPTS. COPY OF HEART HEALTHY DIABETIC DIET TO PATIENT UPON DISCHARGE. HOLD JANUMET 24-48 HOURS PRIOR TO CARDIAC CATH. Referrals: Marty Crowley MD [Primary Care Provider] - 1 Week (DISCHARGE HOME FOLLOW UP; ON 11/22/2017 FOR CARDIAC CATH WITHIN 1 WEEK DISCHARGE MEDS PER UPDATED AMBULATORY ORDERS AND NEW SCRIPTS. COPY OF HEART HEALTHY DIABETIC DIET TO PATIENT UPON DISCHARGE. ) Willie Lira MD [Staff Provider] - 1 Week (DISCHARGE HOME FOLLOW UP; ON 11/22/2017 FOR CARDIAC CATH WITHIN 1 WEEK DISCHARGE MEDS PER UPDATED AMBULATORY ORDERS AND NEW SCRIPTS. COPY OF HEART HEALTHY DIABETIC DIET TO PATIENT UPON DISCHARGE. ) <KeoMarty U - Last Filed: 11/20/17 20:49> Provider - Provider Date of Admission: 11/18/17 13:00 Attending physician: Marty Crowley MD Primary care physician: Marty Crowley MD Hospital Course - Lab Results Lab Results: Most Recent Lab Values WBC 8.7 10^3/ul (4.5-11.0) D 11/19/17 05:40 RBC 4.16 10^6/uL (3.5-6.1) 11/19/17 05:40 Hgb 11.3 g/dL (12.0-16.0) L 11/19/17 05:40 Hct 34.8 % (36.0-48.0) L 11/19/17 05:40 MCV 83.7 fl (80.0-105.0) 11/19/17 05:40 MCH 27.2 pg (25.0-35.0) 11/19/17 05:40 MCHC 32.5 g/dl (31.0-37.0) 11/19/17 05:40 RDW 14.6 % (11.5-14.5) H 11/19/17 05:40 Plt Count 252 10^3/uL (120.0-450.0) 11/19/17 05:40 MPV 10.7 fl (7.0-11.0) 11/19/17 05:40 Gran % 64.7 % (50.0-68.0) 11/19/17 05:40 Lymph % (Auto) 27.2 % (22.0-35.0) 11/19/17 05:40 [place] % (Auto) 6.6 % (1.0-6.0) H 11/19/17 05:40 Eos % (Auto) 1.3 % (1.5-5.0) L 11/19/17 05:40 Baso % (Auto) 0.2 % (0.0-3.0) 11/19/17 05:40 Gran # 5.60 (1.4-6.5) 11/19/17 05:40 Lymph # (Auto) 2.4 (1.2-3.4) 11/19/17 05:40 [place] # (Auto) 0.6 (0.1-0.6) 11/19/17 05:40 Eos # (Auto) 0.1 (0.0-0.7) 11/19/17 05:40 Baso # (Auto) 0.02 K/mm3 (0.0-2.0) 11/19/17 05:40 PT 11.4 SECONDS (9.4-12.5) 11/18/17 11:50 INR 0.99 (0.93-1.08) 11/18/17 11:50 APTT 27.1 Seconds (25.1-36.5) 11/18/17 11:50 D-Dimer, Quantitative 281 ng/mL (0-243) H 11/18/17 11:50 Sodium 139 mmol/L (132-148) 11/19/17 05:40 Potassium 4.1 mmol/L (3.6-5.0) 11/19/17 05:40 Chloride 105 mmol/L (98-107) 11/19/17 05:40 Carbon Dioxide 25 mmol/L (21-33) 11/19/17 05:40 Anion Gap 13 (10-20) 11/19/17 05:40 BUN 17 mg/dL (7-21) 11/19/17 05:40 Creatinine 0.7 mg/dl (0.7-1.2) 11/19/17 05:40 Est GFR ( Amer) > 60 11/19/17 05:40 Est GFR (Non-Af Amer) > 60 11/19/17 05:40 POC Glucose (mg/dL) 119 mg/dL (65-110) H 11/19/17 07:47 Random Glucose 120 mg/dL (70-110) H 11/19/17 05:40 Hemoglobin A1c 7.0 % (4.2-6.5) H 11/18/17 19:11 Fructosamine 208 umol/L (190-270) 11/19/17 05:40 Calcium 8.9 mg/dL (8.4-10.5) 11/19/17 05:40 Phosphorus 3.6 mg/dL (2.5-4.5) 11/19/17 05:40 Magnesium 2.1 mg/dL (1.7-2.2) 11/19/17 05:40 Total Bilirubin 0.6 mg/dL (0.2-1.3) 11/19/17 05:40 AST 28 U/L (14-36) 11/19/17 05:40 ALT 37 U/L (7-56) 11/19/17 05:40 Alkaline Phosphatase 110 U/L (38-126) 11/19/17 05:40 Lactate Dehydrogenase 445 U/L (333-699) 11/19/17 00:40 Total Creatine Kinase 318 U/L (35-230) H 11/19/17 00:40 CK-MB (CK-2) 0.6 ng/mL (0.0-3.6) 11/19/17 00:40 CK-MB (CK-2) % Cancelled 11/18/17 11:50 Troponin I < 0.01 ng/mL 11/19/17 00:40 Total Protein 6.9 g/dL (5.8-8.3) 11/19/17 05:40 Albumin 4.0 g/dL (3.0-4.8) 11/19/17 05:40 Globulin 2.9 gm/dL 11/19/17 05:40 Albumin/Globulin Ratio 1.4 (1.1-1.8) 11/19/17 05:40 Triglycerides 406 mg/dL (35-160) H 11/19/17 05:40 Cholesterol 177 mg/dL (130-200) 11/19/17 05:40 LDL Cholesterol Direct 83 mg/dL (0-129) 11/19/17 05:40 HDL Cholesterol 29 mg/dL (29-60) 11/19/17 05:40 Lipase 110 U/L (23-300) 11/18/17 19:11 Vitamin B12 375 pg/mL (239-931) 11/19/17 05:40 25-OH Vitamin D Total 27.2 NG/ML (30.0-100.0) L 11/19/17 05:40 Folate 12.9 ng/mL 11/19/17 05:40 Free T4 1.21 ng/dL (0.78-2.19) 11/18/17 19:11 TSH 3rd Generation 1.50 mIU/mL (0.46-4.68) 11/18/17 19:11 Attending/Attestation - Attestation I have personally seen and examined this patient.: Yes I have fully participated in the care of the patient.: Yes I have reviewed all pertinent clinical information, including history, physical exam and plan: Yes Notes (Text): Please see/read my dictated notes.
[2017-11-19 13:11] LABS: FOLATE 12.9 ng/mL
--- NOTE | 2017-11-19 13:49 | CP.PCM.CON ---
Addendum entered and electronically signed by Nery Vanegas DPM 11/19/17 14:01 : PMHx of cardiac stent placement, DM, HTN, HLD, left Achilles tear Original Note: <Nery Vanegas - Last Filed: 11/19/17 13:53> History of Present Illness - History of Present Illness History of Present Illness: 72 y/o female seen at bedside this morning for evaluation and management of left Achilles tendon tear. Pt states she sees Dr. Warner as an outpatient and was recently diagnosed with an Achilles tendon tear. Pt admits that she fell awkwardly getting out of the shower and heard a pop in the left Achilles tendon. states that she immediately could not bear weight. Admits to being fully ambulatory prior to this injury. States she went to Dr. Warner's office on Wednesday and a cast was put on to the left lower extremity. Denies numbness tingling or burning to the lower extremities. Denies posterior calf pain proximal to Achilles tendon. Admits to getting Lovenox shots and says she will be going on Plavix soon. States she has a cardiac cath procedure happening on Wednesday. Denies F/C/N/V/CP/SOB PSHx: cholecystectomy FamHx: mother with HTN, father with DM All: NKDA Social: social EtOH; former cigarette smoker x 30 years; denies illicit drug use Review of Systems - Review of Systems All systems: reviewed and no additional remarkable complaints except (per HPI) Past Patient History - Infectious Disease Hx of Infectious Diseases: None - Past Social History Smoking Status: Never Smoked - CARDIAC Hx Cardiac Disorders: No (Cardiac stent X 2 (2005)) Hx Hypercholesterolemia: Yes Hx Hypertension: Yes - PULMONARY Hx Respiratory Disorders: Yes (USED TO SMOKE 3 PPD X 30 YRS. QUIT 12 YRS AGO.) - NEUROLOGICAL Hx Paralysis: No - HEENT Hx HEENT Problems: No - RENAL Hx Chronic Kidney Disease: No - ENDOCRINE/METABOLIC Hx Diabetes Mellitus Type 2: Yes - HEMATOLOGICAL/ONCOLOGICAL Hx Blood Transfusions: No (IRON INFUSIONS IN PAST) Hx Blood Transfusion Reaction: No - INTEGUMENTARY Hx Dermatological Problems: No - MUSCULOSKELETAL/RHEUMATOLOGICAL Hx Musculoskeletal Disorders: Yes - GASTROINTESTINAL Hx Gastrointestinal Disorders: Yes (HIATAL HERNIA) Hx Gall Bladder Disease: Yes (CHOLECYSTECTOMY) Hx Gastroesophageal Reflux: Yes - GENITOURINARY/GYNECOLOGICAL Hx Genitourinary Disorders: No - PSYCHIATRIC Hx Emotional Abuse: No Hx Physical Abuse: No Hx Substance Use: No - SURGICAL HISTORY Hx Surgeries: Yes (CARD CATH STENTS X 2) Hx Cardiac Catheterization: Yes Hx Coronary Stent: Yes (X2*) - ANESTHESIA Hx Anesthesia Reactions: No Hx Malignant Hyperthermia: No Meds Home Medications: Home Medication List Medication Instructions Recorded Confirmed Type Clopidogrel [Plavix] 75 mg PO DAILY #90 tab 11/19/17 Rx Allergies/Adverse Reactions: Allergies Allergy/AdvReac Type Severity Reaction Status Date / Time No Known Allergies Allergy Verified 11/18/17 20:02 - Medications Medications: Current Medications Aspirin (Ecotrin) 81 mg PO DAILY [facility] Last Admin: 11/19/17 09:47 Dose: 81 mg Atorvastatin Calcium (Lipitor) 40 mg PO DIN [facility] Last Admin: 11/18/17 17:58 Dose: 40 mg Clopidogrel Bisulfate (Plavix) 75 mg PO DAILY [facility] Last Admin: 11/19/17 09:49 Dose: Not Given Dextrose (Dextrose 50% Inj) 0 ml IV STAT PRN; Protocol PRN Reason: Hypoglycemia Protocol Enoxaparin Sodium (Lovenox) 40 mg SC DAILY [facility] PRN Reason: Protocol Last Admin: 11/19/17 09:47 Dose: 40 mg Ergocalciferol (Drisdol 50,000 Intl Units Cap) 1 cap PO [facility] Dextrose (Dextrose 5% In Water 1000 Ml) 1,000 mls @ 0 mls/hr IV .Q0M PRN; Protocol; Per Protocol PRN Reason: Hypoglycemia Protocol Insulin Human Regular (Humulin R Med) 0 units SC [facility] PRN Reason: Protocol Last Admin: 11/19/17 12:07 Dose: Not Given Losartan Potassium (Cozaar) 25 mg PO HS [facility] Last Admin: 11/18/17 22:14 Dose: 25 mg Metoprolol Tartrate (Lopressor) 50 mg PO BID [facility] Last Admin: 11/19/17 09:48 Dose: 50 mg Pantoprazole Sodium (Protonix Ec Tab) 40 mg PO HS [facility] Last Admin: 11/18/17 22:13 Dose: 40 mg Pregabalin (Lyrica) 50 mg PO BID [facility] Last Admin: 11/19/17 09:47 Dose: 50 mg Zolpidem Tartrate (Ambien) 5 mg PO HS PRN; Protocol PRN Reason: Insomnia Physical Exam - Constitutional Appears: Well, Non-toxic, No Acute Distress - Extremities Exam Additional comments: LLE focused exam: CFT < 3 sec to all digits Pt able to wiggle toes without difficulty Cast in place to LLE - Neurological Exam Neurological exam: Alert, Oriented x3 - Psychiatric Exam Psychiatric exam: Normal Affect, Normal Mood Results - Vital Signs Recent Vital Signs: Last Vital Signs Temp 98.1 F 11/19/17 06:00 Pulse 71 11/19/17 10:00 Resp 18 11/19/17 06:00 BP 122/60 11/19/17 06:00 Pulse Ox 96 11/19/17 06:00 - Labs Result Diagrams: 11/19/17 05:40 11/19/17 05:40 Labs: Laboratory Results - last 24 hr 11/18/17 11/18/17 11/18/17 17:00 19:11 19:11 WBC RBC Hgb Hct MCV MCH MCHC RDW Plt Count MPV Gran % Lymph % (Auto) [place] % (Auto) Eos % (Auto) Baso % (Auto) Gran # Lymph # (Auto) [place] # (Auto) Eos # (Auto) Baso # (Auto) Sodium Potassium Chloride Carbon Dioxide Anion Gap BUN Creatinine Est GFR ( Amer) Est GFR (Non-Af Amer) POC Glucose (mg/dL) 104 Random Glucose Hemoglobin A1c 7.0 H Calcium Phosphorus Magnesium Total Bilirubin AST ALT Alkaline Phosphatase Lactate Dehydrogenase Total Creatine Kinase CK-MB (CK-2) CK-MB (CK-2) % Troponin I Total Protein Albumin Globulin Albumin/Globulin Ratio Triglycerides Cholesterol LDL Cholesterol Direct HDL Cholesterol Lipase Vitamin B12 25-OH Vitamin D Total Folate Free T4 1.21 TSH 3rd Generation 1.50 11/18/17 11/18/17 11/19/17 19:11 21:08 00:40 WBC RBC Hgb Hct MCV MCH MCHC RDW Plt Count MPV Gran % Lymph % (Auto) [place] % (Auto) Eos % (Auto) Baso % (Auto) Gran # Lymph # (Auto) [place] # (Auto) Eos # (Auto) Baso # (Auto) Sodium Potassium Chloride Carbon Dioxide Anion Gap BUN Creatinine Est GFR ( Amer) Est GFR (Non-Af Amer) POC Glucose (mg/dL) 106 Random Glucose Hemoglobin A1c Calcium Phosphorus Magnesium Total Bilirubin AST ALT Alkaline Phosphatase Lactate Dehydrogenase 378 445 Total Creatine Kinase 400 H 318 H CK-MB (CK-2) 0.7 0.6 CK-MB (CK-2) % Cancelled Cancelled Troponin I < 0.01 < 0.01 Total Protein Albumin Globulin Albumin/Globulin Ratio Triglycerides Cholesterol LDL Cholesterol Direct HDL Cholesterol Lipase 110 Vitamin B12 25-OH Vitamin D Total Folate Free T4 TSH 3rd Generation 11/19/17 11/19/17 11/19/17 05:40 05:40 05:40 WBC 8.7 D RBC 4.16 Hgb 11.3 L Hct 34.8 L MCV 83.7 MCH 27.2 MCHC 32.5 RDW 14.6 H Plt Count 252 MPV 10.7 Gran % 64.7 Lymph % (Auto) 27.2 [place] % (Auto) 6.6 H Eos % (Auto) 1.3 L Baso % (Auto) 0.2 Gran # 5.60 Lymph # (Auto) 2.4 [place] # (Auto) 0.6 Eos # (Auto) 0.1 Baso # (Auto) 0.02 Sodium 139 Potassium 4.1 Chloride 105 Carbon Dioxide 25 Anion Gap 13 BUN 17 Creatinine 0.7 Est GFR ( Amer) > 60 Est GFR (Non-Af Amer) > 60 POC Glucose (mg/dL) Random Glucose 120 H Hemoglobin A1c Calcium 8.9 Phosphorus 3.6 Magnesium 2.1 Total Bilirubin 0.6 AST 28 ALT 37 Alkaline Phosphatase 110 Lactate Dehydrogenase Total Creatine Kinase CK-MB (CK-2) CK-MB (CK-2) % Troponin I Total Protein 6.9 Albumin 4.0 Globulin 2.9 Albumin/Globulin Ratio 1.4 Triglycerides 406 H Cholesterol 177 LDL Cholesterol Direct 83 HDL Cholesterol 29 Lipase Vitamin B12 375 25-OH Vitamin D Total 27.2 L Folate 12.9 Free T4 TSH 3rd Generation 11/19/17 07:47 WBC RBC Hgb Hct MCV MCH MCHC RDW Plt Count MPV Gran % Lymph % (Auto) [place] % (Auto) Eos % (Auto) Baso % (Auto) Gran # Lymph # (Auto) [place] # (Auto) Eos # (Auto) Baso # (Auto) Sodium Potassium Chloride Carbon Dioxide Anion Gap BUN Creatinine Est GFR ( Amer) Est GFR (Non-Af Amer) POC Glucose (mg/dL) 119 H Random Glucose Hemoglobin A1c Calcium Phosphorus Magnesium Total Bilirubin AST ALT Alkaline Phosphatase Lactate Dehydrogenase Total Creatine Kinase CK-MB (CK-2) CK-MB (CK-2) % Troponin I Total Protein Albumin Globulin Albumin/Globulin Ratio Triglycerides Cholesterol LDL Cholesterol Direct HDL Cholesterol Lipase Vitamin B12 25-OH Vitamin D Total Folate Free T4 TSH 3rd Generation Assessment & Plan - Assessment and Plan (Free Text) Assessment: 72 y/o female with left complete Achilles tendon tear secondary to trauma Plan: Pt seen and evaluated at bedside with attending Dr. Mckayla LOVE MRI evaluated, reveals complete Achilles tendon tear with tendon retraction >2.4cm LLE remains in cast at this time Pt advised to continue working with physical therapy and encouraged to ambulate with use of assistive device Pt to follow up as outpatient with Dr. Warner for management of left Achilles tendon tear <Terry Block - Last Filed: 11/19/17 18:17> Results - Vital Signs Recent Vital Signs: Last Vital Signs Temp 98.1 F 11/19/17 06:00 Pulse 71 11/19/17 10:00 Resp 18 11/19/17 06:00 BP 122/60 11/19/17 06:00 Pulse Ox 96 11/19/17 06:00 - Labs Result Diagrams: 11/19/17 05:40 11/19/17 05:40 Labs: Laboratory Results - last 24 hr 11/18/17 11/18/17 11/18/17 19:11 19:11 19:11 WBC RBC Hgb Hct MCV MCH MCHC RDW Plt Count MPV Gran % Lymph % (Auto) [place] % (Auto) Eos % (Auto) Baso % (Auto) Gran # Lymph # (Auto) [place] # (Auto) Eos # (Auto) Baso # (Auto) Sodium Potassium Chloride Carbon Dioxide Anion Gap BUN Creatinine Est GFR ( Amer) Est GFR (Non-Af Amer) POC Glucose (mg/dL) Random Glucose Hemoglobin A1c 7.0 H Calcium Phosphorus Magnesium Total Bilirubin AST ALT Alkaline Phosphatase Lactate Dehydrogenase 378 Total Creatine Kinase 400 H CK-MB (CK-2) 0.7 CK-MB (CK-2) % Cancelled Troponin I < 0.01 Total Protein Albumin Globulin Albumin/Globulin Ratio Triglycerides Cholesterol LDL Cholesterol Direct HDL Cholesterol Lipase 110 Vitamin B12 25-OH Vitamin D Total Folate Free T4 1.21 TSH 3rd Generation 1.50 11/18/17 11/19/17 11/19/17 21:08 00:40 05:40 WBC 8.7 D RBC 4.16 Hgb 11.3 L Hct 34.8 L MCV 83.7 MCH 27.2 MCHC 32.5 RDW 14.6 H Plt Count 252 MPV 10.7 Gran % 64.7 Lymph % (Auto) 27.2 [place] % (Auto) 6.6 H Eos % (Auto) 1.3 L Baso % (Auto) 0.2 Gran # 5.60 Lymph # (Auto) 2.4 [place] # (Auto) 0.6 Eos # (Auto) 0.1 Baso # (Auto) 0.02 Sodium Potassium Chloride Carbon Dioxide Anion Gap BUN Creatinine Est GFR ( Amer) Est GFR (Non-Af Amer) POC Glucose (mg/dL) 106 Random Glucose Hemoglobin A1c Calcium Phosphorus Magnesium Total Bilirubin AST ALT Alkaline Phosphatase Lactate Dehydrogenase 445 Total Creatine Kinase 318 H CK-MB (CK-2) 0.6 CK-MB (CK-2) % Cancelled Troponin I < 0.01 Total Protein Albumin Globulin Albumin/Globulin Ratio Triglycerides Cholesterol LDL Cholesterol Direct HDL Cholesterol Lipase Vitamin B12 25-OH Vitamin D Total Folate Free T4 TSH 3rd Generation 11/19/17 11/19/17 11/19/17 05:40 05:40 07:47 WBC RBC Hgb Hct MCV MCH MCHC RDW Plt Count MPV Gran % Lymph % (Auto) [place] % (Auto) Eos % (Auto) Baso % (Auto) Gran # Lymph # (Auto) [place] # (Auto) Eos # (Auto) Baso # (Auto) Sodium 139 Potassium 4.1 Chloride 105 Carbon Dioxide 25 Anion Gap 13 BUN 17 Creatinine 0.7 Est GFR ( Amer) > 60 Est GFR (Non-Af Amer) > 60 POC Glucose (mg/dL) 119 H Random Glucose 120 H Hemoglobin A1c Calcium 8.9 Phosphorus 3.6 Magnesium 2.1 Total Bilirubin 0.6 AST 28 ALT 37 Alkaline Phosphatase 110 Lactate Dehydrogenase Total Creatine Kinase CK-MB (CK-2) CK-MB (CK-2) % Troponin I Total Protein 6.9 Albumin 4.0 Globulin 2.9 Albumin/Globulin Ratio 1.4 Triglycerides 406 H Cholesterol 177 LDL Cholesterol Direct 83 HDL Cholesterol 29 Lipase Vitamin B12 375 25-OH Vitamin D Total 27.2 L Folate 12.9 Free T4 TSH 3rd Generation Attending/Attestation - Attestation I have personally seen and examined this patient.: Yes I have fully participated in the care of the patient.: Yes I have reviewed all pertinent clinical information: Yes
--- NOTE | 2017-11-19 14:55 | CON ---
DATE: 11/19/2017 CARDIOLOGY CONSULTATION HISTORY OF PRESENT ILLNESS: The patient is a 72-year-old woman with a history of diabetes mellitus, hypertension and hypercholesterolemia and a previous smoker who presents with one episode of chest discomfort with radiation to the neck as well as to the shoulders. Her symptoms are now resolved. The patient's past medical history includes PTCA and stent in the past in 2005. She has been noncompliant with followup. The patient recently had a tear in her Achilles in which she underwent surgery. She has stopped smoking since her angioplasty. SOCIAL HISTORY: She is a former smoker. REVIEW OF SYSTEMS: A 14-point review of systems is reviewed in detail. Other than the above symptoms, no other symptoms are noted. Currently, the patient is asymptomatic. PHYSICAL EXAMINATION: VITAL SIGNS: Blood pressure is 122/60, the heart rate is in the 60s. NECK: Negative JVD. LUNGS: Without rales. HEART: S1 and S2. EXTREMITIES: Without edema. The left lower extremity has a cath covering the ankles. EKG shows normal sinus rhythm with nonspecific ST-T changes. LABORATORY DATA: The troponins are negative x2. The glucose is 120, hemoglobin is 11.3. CT scan shows no pulmonary embolism, but there is a nodule that was noted. IMPRESSION: 1. Recurrent angina that was transient. 2. No evidence for acute coronary syndrome. 3. Diabetes mellitus. 4. Hypertension. 5. Hypercholesterolemia. 6. History of percutaneous transluminal coronary angioplasty and stent in 2005. 7. Lung nodule. PLAN: Given these findings, I have discussed her cardiac issues with the patient in detail. I have offered her a stress test versus repeat catheterization. The patient elects for repeat catheterization. The patient has eaten as well as on metformin. Given that she has no evidence for acute coronary syndrome, we will arrange for an elective catheterization on Wednesday, when she can be off her metformin and loaded with Plavix. The patient remains asymptomatic and can be discharged. We will follow up on Wednesday morning for cardiac catheterization on Plavix. In addition, I have discussed with the patient about his CT scan, which shows a nodule. Her and her daughter are aware and plans for followup. Willie Lira MD [facility] # [id number]
[2017-11-20 08:35] LABS: FRUCTOSAMINE 208 umol/L (190-270)
--- NOTE | 2017-11-20 18:17 | DS ---
FINAL PROGRESS NOTE AND DISCHARGE SUMMARY LOCATION: The patient was seen in room 271, bed 2. HOSPITAL COURSE: The patient was seen earlier in the day today by Dr. Willie Lira. The patient was cleared for discharge by Dr. Willie Lira and Cardiology. The patient was seen, sitting up in the bed in room 271, bed 1. The patient's chest pain has resolved. Overnight nurses' notes were reviewed. PHYSICAL EXAMINATION: GENERAL: T-max 98.1. Telemetry shows heart rate of 66, 74, 71. Telemetry monitoring shows sinus rhythm, heart rate as dictated above. Blood pressure 122/60, 114/60, 139/78, 144/68, 142/65; respirations 18; O2 sat 96%. HEENT: Head examination is normocephalic, atraumatic. [place] conjunctivae. Anicteric sclerae. No oropharyngeal lesion. NECK: No neck rigidity. CHEST: Symmetrical. LUNGS: No rales, crackles, or wheezing. CARDIOVASCULAR: S1, S2, regular rhythm. No audible murmur, gallop, or rub. ABDOMEN: Soft. Positive bowel sound. GENITALIA: Female. RECTAL: Deferred. EXTREMITIES: Positive left leg cast noted up to the knee. NEUROLOGIC: Motor strength is 5/5 in upper and lower extremity except the left lower extremity, the patient has decreased range of motion. Gait examination is not tested. MUSCULOSKELETAL: Body mass index is 29. DIAGNOSTICS: On 11/19/2017, WBC 8.7, down from 13.3; hemoglobin/hematocrit 11.3/34.8; platelets 252. Sodium 139, potassium 4.1, chloride 105, CO2 of 25, anion gap 13. BUN 17, creatinine 0.7. GFR greater than 60. Glucose 119, 120. Hemoglobin A1c was 7. Calcium 8.9, phosphorus 3.6, magnesium 2.1. LFTs are normal. Troponin, all three sets are negative. CPK down to 318 from peak CPK of 489. Triglyceride 406, cholesterol 177, LDL 83, HDL 29. Vitamin B12 375. Vitamin D 25-hydroxy 27. TSH is within normal limit. The patient's all three EKGs were reviewed. FINAL IMPRESSION, PLAN, AND DISCHARGE DIAGNOSES: 1. Chest pain suggestive of rest angina and angina pectoris with anterior ischemic changes on the EKG with T-wave inversion V1 to V4. 2. History of ST elevation myocardial infarction, history of angioplasty and stent placement. 3. Hypertension. 4. History of former nicotine dependence. 5. Transient leukocytosis with granulocytosis. 6. Normocytic anemia. 7. Elevated D-dimer. 8. Type 2 [id number] diabetes mellitus with hemoglobin A1c of 7. 9. Hyperglycemia. 10. Hypertriglyceridemia. 11. Hypovitaminosis D. 12. History of vitamin B12 deficiency. 13. Recurrent angina. 14. Traumatic left complete Achilles tendon tear with tendon retraction of greater than 2.5 cm. 15. Inferior lingular 5 mm nodule with right upper lobe centrilobular emphysema. 16. Mild cardiomegaly. 17. Diffuse bone demineralization. 18. Multilevel degenerative disk disease of the spine. 19. Sliding hiatal hernia. 20. Hepatic steatosis with diffuse fatty infiltration of the liver. 21. History of coronary artery disease, coronary angioplasty, history of ST elevation myocardial infarction, history of code heart. 22. Gait dysfunction. 1. Precordial retrosternal chest pain with associated diaphoresis. 2. Possible unstable angina with radiation of chest pain to the jaw and upper back. 3. Status post left Achilles tendon tear, status post casting done. 4. Hypertension. 5. Leukocytosis with granulocytosis. 6. Type 2 diabetes mellitus. 7. Diabetic neuropathy. 8. Elevated D-dimer. 9. Hyperglycemia. 10. Left inferior lingular area 5-mm pulmonary nodule. 11. Right upper lobe centrilobular emphysema. 12. Hiatal hernia. 13. Hepatic steatosis and fatty infiltration of the liver. 14. Mild cardiomegaly. 15. History of iron-deficiency anemia, history of diverticulosis and history of questionable diverticulitis. 16. History of coronary artery disease, ST elevation myocardial infarction, coronary angioplasty and stent placement, history of hypertension, history of cholecystectomy. 17. Possible unstable angina with symptoms of diaphoresis and chest pain radiating to the jaw. 18. Nonspecific ST changes. 19. History of anxiety disorder. 20. History of type 2 diabetes mellitus. 21. Hypovitaminosis D. 22. Hypercholesterolemia and hypertriglyceridemia. 23. Hyperuricemia. 24. Diabetic neuropathy. 25. History of Alexander's esophagus. 26. Left Achilles tendon rupture. 27. Osteopenia. 28. Hyperplastic colonic polyp, sigmoid colon polyp, tubular adenoma. 29. Obesity with elevated body mass index. 30. Sigmoid and descending colon diverticulosis and internal hemorrhoids. 31. History of insomnia. 32. History of nicotine dependence. PLAN: Plan at this time, the patient was seen by medical recruiter. The patient agrees to proceed with cardiac catheterization on Wednesday which is 11/22/2017. The patient has been loaded up with Plavix by Dr. Willie Lira. The patient's metformin and Janumet will be stopped at least 48 hours prior to the procedure. The patient is cleared for discharge by Cardiology. DISCHARGE MEDICATIONS: Ecotrin 81 mg daily, Klonopin 0.5 mg twice a day p.r.n., Plavix 75 mg daily, Welchol mg twice a day, Drisdol 50,000 units weekly, Lopressor 50 mg twice a day, Protonix 40 mg daily, Lyrica 50 mg twice a day, Janumet 50/500 to be held for cardiac catheterization, Diovan 80 mg daily. The patient is discharged home with discharge followup with Dr. Willie Lira on 11/22/2017 for cardiac catheterization and follow up Dr. Crowley within 1 week. Discharge medications as per updated ambulatory orders and new scripts. The patient was given a copy of the heart healthy diabetic diet upon discharge. The patient was advised to hold Janumet 24 to 48 hours prior to cardiac catheterization. During this hospitalization, the patient was extensively explained about the details of her medical condition, diagnostic test results, recommendation by Cardiology was explained to the patient at length. All test results were explained to the patient at length in layman's language. All questions concerned answered. Time spent in the entire discharge process, more than 45 minutes. Dictated and electronically signed, not read. Marty Crowley MD MTDKatie
[2017-11-21] MEDS ORDERED: Ergocalciferol 50,000 Intl Units Cap PO SCH ×2 (10:00)
== END 2017-11-19 13:51 | disposition home or self-care (01) ==
LOC: ED 10:11 → INTOOBSV 13:00 → ERH 13:00 → 2RSO 15:10
PROVIDERS: ADMIT Internal Medicine; ATTEND Internal Medicine
DX: R07.2 Precordial pain (principal); R68.84 Jaw pain; I25.110 Atherosclerotic heart disease of native coronary artery with unstable angina pectoris; I25.2 Old myocardial infarction; I11.9 Hypertensive heart disease without heart failure; I45.81 Long QT syndrome; J43.2 Centrilobular emphysema; E78.5 Hyperlipidemia, unspecified; Z95.5 Presence of coronary angioplasty implant and graft; Z91.19 Patient's noncompliance with other medical treatment and regimen; Z87.891 Personal history of nicotine dependence; Z79.82 Long term (current) use of aspirin; Z79.02 Long term (current) use of antithrombotics/antiplatelets; R79.1 Abnormal coagulation profile; M81.0 Age-related osteoporosis without current pathological fracture; K21.9 Gastro-esophageal reflux disease without esophagitis; D72.829 Elevated white blood cell count, unspecified; E11.65 Type 2 diabetes mellitus with hyperglycemia; E11.40 Type 2 diabetes mellitus with diabetic neuropathy, unspecified; E55.9 Vitamin D deficiency, unspecified; E66.9 Obesity, unspecified; Z68.29 Body mass index [BMI] 29.0-29.9, adult
CPT/HCPCS: 36415; 71045; 71275; 80053; 80061; 82306; 82550; 82553; 82607; 82746; 82948; 82985; 83036; 83615; 83690; 83735; 84100; 84378; 84439; 84443; 84484; 85025; 85378; 85610; 85730; 93005; 96372; 97161; 97530; 99285; G0378; G8978; G8979; J1650; Q9967

== ENCOUNTER 2017-11-22 08:58 | Day surgery (SDC) | payer MEDICARE ==
[2017-11-22] MEDS ORDERED: Midazolam 2 MG/2 ML VIAL ONE ×2 (13:09→13:23)
[2017-11-22] MEDS ORDERED: Lidocaine 2% Inj (20ml) ONE (13:09)
[2017-11-22] MEDS ORDERED: Iodixanol 320 MG/ML 200 ML BOTTLE IV ONE (13:10)
[2017-11-22] MEDS ORDERED: Sodium Chloride 0.9% 1,000 ML IV SCH (14:00)
[2017-11-22 14:21] VITALS: TEMP 98.3
--- NOTE | 2017-11-22 14:44 | CARDCATH ---
PROCEDURE DATE: 11/22/2017 HISTORY: The patient is a 72-year-old woman with history of PTCA and stent x2 in the past who presents with exertional shortness of breath. The patient refused stress test and requested to go straight to a catheterization. Because of her ongoing symptoms, cardiac catheterization was recommended. PROCEDURE: Left heart catheterization with coronary arteriography and left ventriculogram. The right femoral artery was cannulated with 6-Trinidadian sheath. There were no complications. I performed moderate sedation, which included the presence of an independent trained observer that assisted in monitoring the patient's level of consciousness and physiologic status. After administration of Versed and fentanyl, my intra service time was 15 minutes. The findings on catheterization revealed a right dominant circulation. The RCA revealed diffuse atherosclerosis with a patent stent in the proximal portion. The left main artery was unremarkable. The LAD and diagonal vessels revealed diffuse atherosclerosis. There was a 50-60% stenoses in the ostium of the second diagonal vessel. The circumflex artery and obtuse marginal branches revealed diffuse atherosclerosis with a patent stent in the circumflex artery. Left ventriculogram was viewed in the ALEXANDRE projection. In the ALEXANDRE projection, wall motion is within normal limits. Estimated ejection fraction is approximately 55-60%. Angio-Seal was used to close the femoral artery site. The patient tolerated the procedure well. In summary, the procedure revealed: 1. Patent stents in the RCA and circumflex artery. 2. There is a 50% stenoses in the ostium of the second diagonal vessel. 3. There is diffuse atherosclerosis in the coronary tree. 4. Normal LV function is noted. Given these findings, the patient's treatment should be medical. This should include aspirin, statin therapy and undergo a strict cardiac risk reduction program. Willie Lira MD
[2017-11-22 16:42] VITALS: O2SAT 93
[2017-11-22 16:44] VITALS: RESP 20
[2017-11-22 18:24] VITALS: BP 144/63; PULSE 73
== END 2017-11-22 19:10 | disposition home or self-care (01) ==
LOC: CATH 08:58
PROVIDERS: ATTEND Internal Medicine Cardiovascular Disease
DX: I25.110 Atherosclerotic heart disease of native coronary artery with unstable angina pectoris (principal); R94.39 Abnormal result of other cardiovascular function study; I10 Essential (primary) hypertension; J43.9 Emphysema, unspecified; Z87.891 Personal history of nicotine dependence; E11.9 Type 2 diabetes mellitus without complications; E66.9 Obesity, unspecified; D64.9 Anemia, unspecified; E78.5 Hyperlipidemia, unspecified; I42.9 Cardiomyopathy, unspecified; K22.70 Barrett's esophagus without dysplasia; M81.0 Age-related osteoporosis without current pathological fracture; Z68.29 Body mass index [BMI] 29.0-29.9, adult
CPT/HCPCS: 36415; 86850; 86900; 93458; 99152; 99153; C1760; C1769; C1894; J1644; J2250; J3010; J7030; Q9966